=== PATIENT | male | born 1985 | race African-American/Black ===

== ENCOUNTER → 2018-04-25 | Emergency (ER) | payer SELFPAY ==
[~2018-04-25] VITALS: Ht 188 cm; Wt 113.4 kg
[~2018-04-25] MED LIST: TYLENOL EXTRA500 MG ORAL; VOLTAREN100 G1 TP
[2018-04-25 14:00] VITALS: BP 116/64
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
[2018-04-25 15:53] VITALS: BP 128/87
--- NOTE | 2018-04-26 10:10 | Diagnostic Imaging Report ---
Indication: Chest pain Technique: 2 views of the right ribs Comparison: none Findings: No acute fractures. No gross pneumothorax. Impression: Negative
--- NOTE | 2018-04-26 10:11 | Diagnostic Imaging Report ---
Indication: Chest pain Technique: One view of the chest Comparison: none Findings: Lungs and pleural spaces are clear. Heart size is normal. No gross pneumothorax. Impression: No acute process
== END | disposition home or self-care (01) ==
LOC: EMR 15:55
DX: S29.011A Strain of muscle and tendon of front wall of thorax, initial encounter (principal); X58.XXXA Exposure to other specified factors, initial encounter; Y92.9 Unspecified place or not applicable; F17.200 Nicotine dependence, unspecified, uncomplicated; J44.9 Chronic obstructive pulmonary disease, unspecified; F12.929 Cannabis use, unspecified with intoxication, unspecified; Z88.0 Allergy status to penicillin; Z88.5 Allergy status to narcotic agent; Z88.6 Allergy status to analgesic agent
CPT/HCPCS: 71045; 99283

== ENCOUNTER 2019-04-22 01:19 | Emergency (ER) | payer OTHER ==
[~2019-04-22] VITALS: Ht 185.4 cm; Wt 102.1 kg
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
[2019-04-22 01:38] VITALS: BP 101/72
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
[2019-04-22] MEDS ORDERED: HYDROmorphone 1mg/ml Carpuject IM ONE (01:45)
--- NOTE | 2019-04-22 02:00 | NUR ---
ED Nurse Note: PT MEDICATED; TOLERATED WELL. PT DOWN TO IMAGING. ACCOMPANIED BY FAMILY MEMBER AND ETHYLENE [employer] PANELBOARD OPERATOR
--- NOTE | 2019-04-22 02:42 | NUR ---
ED Nurse Note: PT BACK FROM IMAGING. PT REPORTS RELIEF OF PAIN FROM MEDICATION. 10/01. PT CURRENTLY SLEEPING IN BED WITH NO ACUTE DISTRESS. AO4. VSS. FAMILY MEMBER AT BEDSIDE.
[2019-04-22] MEDS ORDERED: IBUPROFEN600 MG ORAL (02:52)
[2019-04-22] MEDS ORDERED: VALIUM5 MG ORAL (02:52)
[2019-04-22] MEDS ORDERED: HYDROCODON-ACE1 EA15 ORAL (02:52)
[2019-04-22 02:58] VITALS: BP 101/72
--- NOTE | 2019-04-22 02:58 | Diagnostic Imaging Report ---
Indication: Headache Technique: Contiguous 5 mm thick transaxial imaging of the head obtained in a Siemens Sensation [address] scanner. Soft tissue and bone windows generated. Automatic Exposure Control was utilized. Total Dose length Product (DLP): 1457.[address] Dose Index Volume (CTDIvol): 62.7 mGy Comparison: none Findings: The size and configuration of the cortical sulci, basal cisterns, and ventricles are within normal limits for age. There is no mass effect, midline shift, or edema identified. There is no evidence of acute hemorrhage or abnormal intra-axial or extra-axial fluid collections. The bones and soft tissues are unremarkable. Impression: No mass effect, edema or acute bleed. [facility] has communicated the preliminary results to the Emergency Department. Their findings are largely concordant with this report. The CT scanner at [facility] is accredited by the [employer] and the scans are performed using dose optimization techniques as appropriate to a performed exam including Automatic Exposure control.
--- NOTE | 2019-04-22 02:58 | NUR ---
ER DISCHARGE NOTE: Patient is cleared to be discharged per ERMD, pt is aox4, on room air, with stable vital signs. pt was given dc and prescription instructions, pt was able to verbalize understanding, pt id band REMOVED. pt is able to ambulate with steady gait. pt took all belongings.
--- NOTE | 2019-04-22 10:06 | Diagnostic Imaging Report ---
Indication: Back pain Comparison: None Findings: 5 views of the lumbar spine were obtained. No acute fracture or malalignment is identified. There is minimal vertebral endplate scalloping. Vertebral body heights and disk spaces are well maintained. Posterior elements are unremarkable. Impression: No acute findings.
== END 2019-04-22 02:59 | disposition home or self-care (01) ==
LOC: EMR 01:36
DX: S09.90XA Unspecified injury of head, initial encounter (principal); S39.012A Strain of muscle, fascia and tendon of lower back, initial encounter; F12.90 Cannabis use, unspecified, uncomplicated; V47.5XXA Car driver injured in collision with fixed or stationary object in traffic accident, initial encounter; Y92.89 Other specified places as the place of occurrence of the external cause; Z88.6 Allergy status to analgesic agent; Z88.5 Allergy status to narcotic agent; Z88.0 Allergy status to penicillin
CPT/HCPCS: 70450; 72110; 96372; J1170; Z7502; 99284